=== PATIENT | female | born 1985 | race Caucasian/White ===

== ENCOUNTER 2018-04-29 18:56 | Emergency (ER) | payer OTHER ==
[~2018-04-29] VITALS: Ht 160 cm; Wt 88.0 kg
[2018-04-29] MEDS ORDERED: TRAMADOL 50 MG50 MG PO (19:11)
[2018-04-29] MEDS ORDERED: NORCO 5-325 TA1 EACH PO (19:14)
[2018-04-29 19:44] VITALS: BP 107/79
== END 2018-04-29 20:13 | disposition home or self-care (01) ==
LOC: ER 18:56
DX: G89.18 Other acute postprocedural pain (principal); R10.9 Unspecified abdominal pain; F41.9 Anxiety disorder, unspecified; Z88.5 Allergy status to narcotic agent